=== PATIENT | female | born 1980 | race Caucasian/White ===

== ENCOUNTER 2019-05-15 08:36 | Day surgery (SDC) | payer OTHER ==
[~2019-05-15] VITALS: Ht 162.6 cm; Wt 58.1 kg
[2019-05-15] MEDS ORDERED: BACITRACIN OINT 500U/GM, 15 GM ONE (08:38)
[2019-05-15] MEDS ORDERED: COCAINE TOPICAL SOLN 4%, 4ML ONE (08:39)
[2019-05-15] MEDS ORDERED: OXYMETAZOLINE NASAL SPRAY 0.05%, 15ML ONE (08:39)
[2019-05-15] MEDS ORDERED: LIDOCAINE 1%-EPI 1:100K, 20ML ONE (08:39)
[2019-05-15] MEDS ORDERED: PROP20TA PO (09:34)
[2019-05-15] MEDS ORDERED: FLUO20CA19 PO (09:34)
[2019-05-15] MEDS ORDERED: BACL-19 PO (09:34)
[2019-05-15] MEDS ORDERED: META-23 PO (09:34)
[2019-05-15 09:47] VITALS: BP 109/71
[2019-05-15] MEDS ORDERED: LACTATED RINGERS 1,000 ML IV SCH (10:00)
[2019-05-15] MEDS ORDERED: MIDAZOLAM 1 MG/ML, 2ML ONE (10:05)
[2019-05-15] MEDS ORDERED: DEXAMETHASONE 4 MG/ML, 1ML ONE (10:13)
[2019-05-15] MEDS ORDERED: LIDOCAINE PF 2%, 5ML ONE (10:13)
[2019-05-15] MEDS ORDERED: PROPOFOL 10 MG/ML, 20ML ONE (10:13)
[2019-05-15] MEDS ORDERED: FENTANYL PF 250 MCG/5ML ONE (10:37)
[2019-05-15] MEDS ORDERED: LORazepam 2 MG/ML, 1ML IVPush PRN (11:00)
[2019-05-15] MEDS ORDERED: KETOROLAC 30 MG/1 ML IV PRN (11:00)
[2019-05-15] MEDS ORDERED: ACETAMINOPHEN 325 MG TABLET PO PRN (11:00)
[2019-05-15] MEDS: DIAZEPAM 5 MG/ML, 2ML IVPush PRN ×2 (11:00→11:55)
[2019-05-15] MEDS ORDERED: HYDROmorphone 1 MG/ML, 1ML INJ IVPush PRN (11:00)
[2019-05-15] MEDS ORDERED: OXYcodone 5 MG/5 ML ORAL.SOL UDC PO PRN (11:00)
[2019-05-15] MEDS ORDERED: FENTANYL PF 100 MCG/2ML IV PRN (11:00)
[2019-05-15] MEDS ORDERED: OXYcodone 5 MG/5 ML ORAL.SOL UDC ONE (11:04)
[2019-05-15] MEDS ORDERED: DIAZEPAM 5 MG/ML, 2ML ONE (11:05)
[2019-05-15] MEDS ORDERED: MEPERIDINE/PF 25MG/ML,1ML ONE (11:17)
[2019-05-15] MEDS ORDERED: CLONIDINE ONE (11:20)
[2019-05-15] MEDS ORDERED: DIPHENHYDRAMINE 50 MG/ML, 1ML ONE (11:24)
[2019-05-15] MEDS ORDERED: DIPHENHYDRAMINE 50 MG/ML, 1ML IM PRN (11:30)
[2019-05-15] MEDS ORDERED: MEPERIDINE/PF 25MG/0.5ML IVPush PRN (12:00)
[2019-05-15] MEDS ORDERED: METHOCARBAMOL 1,000 MG in DEXTROSE 5% 100 ML IV ONE (12:00)
== END 2019-05-15 13:45 | disposition home or self-care (01) ==
LOC: OUT 08:36
PROVIDERS: ATTEND Otolaryngology Facial Plastic Surgery
DX: S02.2XXA Fracture of nasal bones, initial encounter for closed fracture (principal); Z90.710 Acquired absence of both cervix and uterus; Z88.8 Allergy status to other drugs, medicaments and biological substances; Y08.89XA Assault by other specified means, initial encounter; Y93.89 Activity, other specified; Y92.238 Other place in hospital as the place of occurrence of the external cause; Y99.8 Other external cause status
CPT/HCPCS: 21320; J0735; J1100; J1200; J2175; J2250; J2704; J2800; J3010; J3360; J3490; J7120